=== PATIENT | female | born 1965 | race Asian ===

== ENCOUNTER 2017-03-10 21:35 | Emergency (ER) | payer OTHER ==
[2017-03-10 22:01] LABS: BILIRUBIN,URINE NEGATIVE (NEGATIVE)
[2017-03-10 22:03] LABS: UA w/ MICROSCOPIC CHARGE YES
[2017-03-10 22:04] LABS: HCG UR QUAL NEGATIVE
[2017-03-10 22:08] LABS: UR CULTURE IF IND NOT INDICATED; WBC,URINE 0-3 /HPF (0-5)
[2017-03-10 22:11] LABS: BASOPHILS # (AUTO) 0.1 10^3/uL (0.0-0.1); BASOPHILS % (AUTO) 0.8 %; EOSINOPHILS # (AUTO) 0.4 10^3/uL (0.0-0.7); EOSINOPHILS % (AUTO) 3.8 %; HCT - HEMATOCRIT 40.4 % (37.0-47.0); HGB - HEMOGLOBIN 13.4 g/dL (12.0-16.0); LYMPHOCYTES # (AUTO) 3.9 10^3/uL (1.5-3.5); LYMPHOCYTES % (AUTO) 33.2 %; MEAN CORPUSCULAR HEMOGLOBIN 30.3 pg (27.0-31.0); MEAN CORPUSCULAR HGB CONC 33.2 g/dL (32.0-36.0); MEAN CORPUSCULAR VOLUME 91.2 fL (81.0-99.0); MEAN PLATELET VOLUME 7.3 fL (7.9-10.8); MONOCYTES % (AUTO) 8.4 %; NEUTROPHILS # (AUTO) 6.3 10^3/uL (1.5-6.6); NEUTROPHILS % (AUTO) 53.8 %; NUCLEATED RED BLOOD CELLS AUTO 0.1 /100WBC; RED BLOOD COUNT 4.43 10^6/uL (4.20-5.40); RED CELL DISTRIBUTION WIDTH 12.4 % (12.0-15.0); UNCORRECTED WHITE BLOOD COUNT 11.8 x10^3/uL; WHITE BLOOD COUNT 11.8 x10^3/uL (4.8-10.8)
[2017-03-10 22:40] LABS: ALBUMIN/GLOBULIN RATIO 1.2 (1.0-2.2); BILIRUBIN,TOTAL 0.6 mg/dL (0.2-1.0); CALCIUM 10.6 mg/dL (8.5-10.3); CREATININE 0.8 mg/dL (0.4-1.0); POTASSIUM 4.7 mmol/L (3.5-5.0); TOTAL PROTEIN 7.8 g/dL (6.7-8.2)
[2017-03-10] MEDS ORDERED: SODIUM CHLORIDE 0.9% 1,000 ML IV ONE (22:46)
[2017-03-10] MEDS ORDERED: IOPAMIDOL-300 100 ML VIAL ONE (23:02)
[2017-03-10] MEDS ORDERED: IOPAMIDOL-300 100 ML VIAL IVP ONE (23:28)
--- NOTE | 2017-03-10 23:42 | CT Preliminary Report ---
Exam: CT ABDOMEN/PELVIS W/ IMPRESSION: Hysterectomy, otherwise unremarkable abdomen and pelvis CT. [facility] SITE ID: [id number]
--- NOTE | 2017-03-10 23:45 | CT Report ---
EXAM: CT ABDOMEN AND PELVIS EXAM DATE: 03/10/2017 11:29 PM. CLINICAL HISTORY: Abdomen pain. History of multiple surgeries. COMPARISONS: None. TECHNIQUE: Routine helical CT imaging was performed through the abdomen and pelvis. IV contrast: 100M L ISOVUE 300. Enteric contrast: No. Reconstructions: Coronal and sagittal. In accordance with CT protocol optimization, one or more of the following dose reduction techniques w ere utilized for this exam: automated exposure control, adjustment of mA and/or KV based on patient s ize, or use of iterative reconstructive technique. FINDINGS: Lung Bases: Unremarkable. Liver: Normal. No masses. Gallbladder/Bile Ducts: Unremarkable. Spleen: Normal. Pancreas: Normal. Adrenal Glands: Normal. Kidneys: 1 cm cortical cyst, upper right kidney, otherwise unremarkable. Peritoneal Cavity/Bowel: Normal. No free fluid, free air or adenopathy. No masses or acute inflammato ry process. The appendix is well visualized and normal. Pelvic Organs: Hysterectomy. Somewhat lobular full bladder. Vasculature: No aneurysms or other significant abnormality. Bones: No significant abnormality. Other: None. IMPRESSION: Hysterectomy, otherwise unremarkable abdomen and pelvis CT. [facility] Referring Provider Line: [phone] SITE ID: [id number]
[2017-03-10] MEDS ORDERED: ONDANSETRON ODT 4 MG TABLET TL STA (23:46)
[2017-03-10] MEDS ORDERED: cephALEXin 250 MG CAPSULE PO STA (23:47)
[2017-03-10] MEDS ORDERED: cephALEXin 250 MG CAPSULE PO ONE (23:56)
--- NOTE | 2017-03-10 23:56 | ED Physician Documentation ---
PD HPI ABD PAIN - Stated complaint Stated Complaint: CHILLS,ABD PAIN - Chief complaint Chief Complaint: Abd Pain - History obtained from History obtained from: Patient, Family - History of Present Illness Timing - onset: Yesterday Timing - details: Gradual onset, Still present Quality: Cramping, Aching Location: Epigastric, Suprapubic Radiation: Left flank, Right flank Worsened by: Position, Palpation Associated symptoms: Fever, Nausea. 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 Patient also has a history of obstruction. Patient is presenting to the emergency department for abdominal pain with radiation to her back. Patient states that she has nausea, but no vomiting. Patient states it doesn't feel like her previous bladder infections. Patient states that her bowel habits have been normal. Review of Systems Constitutional: denies: Fever, Chills Eyes: reports: Reviewed and negative Ears: reports: Reviewed and negative Nose: reports: Reviewed and negative Throat: reports: Reviewed and negative Cardiac: denies: Chest pain / pressure, Palpitations Respiratory: reports: Wheezing. denies: Dyspnea, Cough GI: reports: Abdominal Pain, Nausea. denies: Vomiting, Constipation, Diarrhea : reports: Dysuria, Hesitancy. denies: Frequency Skin: denies: Rash, Lesions Neurologic: denies: Generalized weakness, Focal weakness, Numbness Immunocompromised: denies: Immunocompromised PD PAST MEDICAL HISTORY - Past Medical History Past Medical History: Yes GI: Other Other Past Medical History: Boowel Obstruction; abd wall abcess - Past Surgical History Past Surgical History: Yes Ortho: Carpal Tunnel surgery /OCCUPATIONAL THERAPIST HOME BASED: Hysterectomy - Present Medications Home Medications: Ambulatory Orders Medication Instructions Recorded Confirmed Cephalexin [Keflex] 500 mg PO Q8H #42 capsule 03/10/17 Ondansetron Odt [Zofran] 4 mg TL Q6H PRN #14 tablet 03/10/17 - Allergies Allergies/Adverse Reactions: Allergies Allergy/AdvReac Type Severity Reaction Status Date / Time sulfamethoxazole Allergy Rash Verified 03/10/17 21:44 [From ] trimethoprim [From ] Allergy Rash Verified 03/10/17 21:44 - Social History Does the pt smoke?: Yes Smoking Status: Current every day smoker Does the pt drink ETOH?: No Does the pt have substance abuse?: No - Immunizations Immunizations are current?: No - POLST Patient has POLST: No PD ED PE NORMAL - Vitals Vital signs reviewed: Yes - General General: Alert and oriented X 3 - HEENT HEENT: Atraumatic, PERRL, Ears normal - Neck Neck: Supple, no meningeal sign - Cardiac Cardiac: RRR, No murmur - Respiratory Respiratory: No respiratory distress, Clear bilaterally - Abdomen Abdomen: Soft - Derm Derm: Normal color, Warm and dry, No rash - Extremities Extremities: No deformity, No edema - Neuro Neuro: Alert and oriented X 3, No motor deficit, No sensory deficit, Normal speech - Psych Psych: Normal mood PD ED PE EXPANDED - General General: In Pain - HEENT HEENT: Dry mucous membranes - Abdomen Abdomen: Tender to palpation, Generalized/diffuse, Surgical scars. No: Rebound , Guarding - Back Back: CVA TTP right, CVA TTP left Results - Vitals Vitals: Vital Signs - 24 hr 03/10/17 03/10/17 03/11/17 21:35 23:36 00:04 Temperature 36.7 C 36.6 C 36.3 C L Heart Rate 70 82 75 Respiratory 16 18 16 Rate Blood Pressure 129/84 H 111/78 110/68 O2 Saturation 98 100 100 Oxygen O2 Source Room air - Labs Labs: Laboratory Tests 03/10/17 03/10/17 03/10/17 21:50 22:05 22:05 WBC 11.8 H RBC 4.43 Hgb 13.4 Hct 40.4 MCV 91.2 MCH 30.3 MCHC 33.2 RDW 12.4 Plt Count 304 MPV 7.3 L Neut # 6.3 Lymph # 3.9 H [place] # 1.0 Eos # 0.4 Baso # 0.1 Absolute Nucleated RBC 0.01 Nucleated RBC % 0.1 Sodium 139 Potassium 4.7 Chloride 103 Carbon Dioxide 27 Anion Gap 9.0 BUN 16 Creatinine 0.8 Estimated GFR (MDRD) 75 L Glucose 92 Calcium 10.6 H Total Bilirubin 0.6 AST 22 ALT 24 Alkaline Phosphatase 101 Total Protein 7.8 Albumin 4.3 Globulin 3.5 Albumin/Globulin Ratio 1.2 Lipase 41 Urine Color YELLOW Urine Clarity HAZY Urine pH 6.0 Ur Specific [place] 1.015 Urine Protein NEGATIVE Urine Glucose (UA) NEGATIVE Urine Ketones NEGATIVE Urine Occult Blood NEGATIVE Urine Nitrite POSITIVE H Urine Bilirubin NEGATIVE Urine Urobilinogen 0.2 (NORMAL) Ur Leukocyte Esterase NEGATIVE Urine RBC None Seen Urine WBC 0-3 Ur Squamous Epith Cells MANY Squamous H Urine Bacteria Many H Ur Microscopic Review INDICATED Urine Culture Comments NOT INDICATED Urine HCG, Qual NEGATIVE - Rads (name of study) ct abdomen and pelvis Radiology: Final report received (post hysterectomy, no other abdominal abnormalities) PD MEDICAL DECISION MAKING - ED course Complexity details: reviewed old records, reviewed results, re-evaluated patient , considered differential, d/w patient, d/w family ED course: Patient was seen and examined at bedside. IV access was gained. labs were drawn. Patient was treated with a fluid bolus. when patient's diagnostics came back they were consistent with cystitis, but patient stated that her abdominal pain was diffuse. CT was ordered. When the patient returned the results were reviewed and showed no acute intraabdominal pathology. Patient was treated with tylenol and keflex. Patient was able to tolerate PO without difficulty. patient required no further work up and was stable for discharge [facility] outpatient follow up. Departure - Departure Disposition: 01 Home, Self Care Clinical Impression: Pyelonephritis Condition: Good Instructions: Pyelonephritis Dc Follow-Up: Brian Araujo MD [Primary Care Provider] - Within 3 Days Prescriptions: Cephalexin [Keflex] 500 mg PO Q8H #42 capsule Ondansetron Odt [Zofran] 4 mg TL Q6H PRN #14 tablet PRN Reason: Nausea / Vomiting Comments: Your symptoms today are being caused by a kidney infection. You had your first dose of antibiotics tonight and you will need to be on them for the next two weeks. You will need to stay very well hydrated with plenty of water. You should follow up with your doctor if your symptoms persist. You can take tylenol and occasional motrin as needed for pain. You may return to the emergency department at any time for new, worsening or uncontrollable symptoms. Discharge Date/Time: 03/11/17 00:05
[2017-03-10] MEDS ORDERED: ONDANSETRON ODT 4 MG TABLET ONE (23:57)
[2017-03-11 00:05] VITALS: BP 110/68
== END 2017-03-11 00:05 | disposition home or self-care (01) ==
LOC: ED 21:35
DX: N12 Tubulo-interstitial nephritis, not specified as acute or chronic (principal); F17.200 Nicotine dependence, unspecified, uncomplicated
CPT/HCPCS: 36415; 74177; 80053; 81001; 81025; 83690; 85025; 96360; 99284; A9270; Q0162; Q9967; 81003; 87086